=== PATIENT | female | born 1960 | race Caucasian/White ===

== ENCOUNTER 2020-03-16 06:01 | Day surgery (SDC) | payer BC, OTHER ==
[2020-03-09 11:10] VITALS: BMI 19.1
[2020-03-16] MEDS ORDERED: ROPIVACAINE HCL 0.5% 30ML VIAL ONE (06:54)
[2020-03-16] MEDS ORDERED: MIDAZOLAM HCL 2 MG/2 ML SINGLE DOSE VIAL ONE (06:54)
[2020-03-16] MEDS ORDERED: EPINEPHrine 1:1,000 1 MG/1 ML - 30ML VIAL (INJECTION) ONE (07:06)
[2020-03-16] MEDS ORDERED: ceFAZolin SODIUM 1 GM VIAL ONE (07:41)
[2020-03-16] MEDS ORDERED: DEXAMETHASONE SOD PHOSPHATE 4 MG/1 ML VIAL ONE (07:41)
[2020-03-16] MEDS ORDERED: KETOROLAC TROMETHAMINE 30 MG/1 ML VIAL ONE (07:41)
[2020-03-16] MEDS ORDERED: ONDANSETRON 4 MG/2 ML VIAL ONE (07:41)
[2020-03-16] MEDS ORDERED: PROPOFOL 20 ML ONE ×2 (07:45)
[2020-03-16] MEDS ORDERED: oxyCODONE HCL 5 MG TABLET PO PRN ×2 (08:52)
[2020-03-16] MEDS ORDERED: PROMETHAZINE HCL 25 MG/1 ML VIAL IVPUSH PRN (08:52)
[2020-03-16] MEDS ORDERED: ONDANSETRON 4 MG/2 ML VIAL IVPUSH PRN (08:52)
--- NOTE | 2020-03-16 09:38 | OP ---
DATE OF OPERATION: 03/16/2020 PREOPERATIVE DIAGNOSIS: Left shoulder internal derangement/bursitis/impingement/adhesive capsulitis. POSTOPERATIVE DIAGNOSIS: 1. Left shoulder adhesive capsulitis. 2. Left shoulder glenohumeral joint synovitis and partial thickness bursal- sided rotator cuff tear. 3. Left shoulder subacromial impingement syndrome. OPERATIVE PROCEDURE: 1. Left shoulder _operative____ arthroscopy with release of adhesive capsulitis/capsulectomy. 2. Left shoulder glenohumeral joint and rotator cuff extensive debridement. 3. Left shoulder arthroscopic subacromial decompression with anteroinferior acromioplasty. SURGEON: Kan Porras MD BEHAVIORAL HEALTH CASE MANAGER: Bayron Conroy MD ANESTHESIA: Regional. COMPLICATIONS: None. ESTIMATED BLOOD LOSS: Minimal. INDICATION FOR PROCEDURE: The patient is a 60-year-old female with the above finding, indicated for operative treatment. Risks, benefits, alternatives were discussed with the patient at length. Proper informed consent was obtained. DESCRIPTION OF PROCEDURE: After preoperative identification of the patient, correct operative site, patient brought to the operating room after being given regional anesthesia and placed onto the operating room table in the beach chair position with all points of contact well padded, an in-line cervical position maintained throughout the procedure. Left upper extremity was prepped, draped in usual sterile fashion. Examination under anesthesia showed forward elevation actively to 110 degrees, external rotation to 30 degrees, internal rotation to __30___. Arthroscopy was performed through posterior, lateral, and anterior portals. All portals were made with skin incision only, with blunt dissection down to the joint capsule. Glenohumeral joint was observed and found to be free of articular defects; however, there was significant anterior and inferior capsular thickening and induration and synovitis. There was also synovitis in the axillary pouch. Debridement was performed with mechanical shaver and ArthroWand. The subscapularis was found to be intact. The biceps tendon was found to be intact, as was the labrum except for mild fraying. The extraarticular portion of the biceps was brought into the joint, and there was no evidence of tearing or tenosynovitis. The excursion was normal. After synovectomy and debridement were performed, a capsulotomy was performed carefully from the superior to the inferior position, taking care to protect the axillary nerve. Once this was accomplished, I was able to active forward elevation, internal rotation, and external rotation. Arthroscope was then introduced in the subacromial space, where severe bursitis was then able to be debrided with mechanical shaver. A less than 25% partial-thickness bursal-sided tear of the supraspinatus was noted at its mid aspect. This was debrided with mechanical shaver down to healthy tissue. The subacromial space was extremely tight, and a subacromial decompression was performed by removing the bursa, elevating the coracoacromial ligaments, and providing an anteroinferior acromioplasty. Once this was performed, there was adequate space for the rotator cuff to mobilize normally. No further tearing was noted. Shoulder was irrigated, and the incisions were repaired with 4-0 nylon suture. Sterile dressings were applied. Ice machine and sling were placed. Patient was reversed from anesthesia, brought to the recovery room in stable condition. Bayron Conroy MD, the corporate legal assistant, was integral throughout the procedure. He was especially implant in positioning the arm during the capsulectomy and helping to protect the axillary nerve during release. This procedure could not have been performed without a skilled operative corporate legal assistant. KAN PORRAS M.D. [id number] MTDD
[2020-03-16 10:47] VITALS: BP 103/51; PULSE 52; TEMP 98
== END 2020-03-16 10:45 | disposition home or self-care (01) ==
LOC: FASU 06:01
PROVIDERS: ATTEND Orthopaedic Surgery Hand Surgery
PROC: 0RBK4ZZ Excision of Left Shoulder Joint, Percutaneous Endoscopic Approach (ICD-10-PCS; principal; 2020-03-16 07:51)
DX: M75.02 Adhesive capsulitis of left shoulder (principal); M75.112 Incomplete rotator cuff tear or rupture of left shoulder, not specified as traumatic; M75.42 Impingement syndrome of left shoulder; M65.812 Other synovitis and tenosynovitis, left shoulder
CPT/HCPCS: 94760